=== PATIENT | female | born 1945 | race Two or more races ===

== ENCOUNTER 2017-03-12 10:20 | Inpatient (IN) | payer MEDICARE ==
[~2017-03-12] VITALS: Ht 167.6 cm; Wt 77.6 kg
[2017-03-12] MEDS ORDERED: METO100T7 PO (11:10)
[2017-03-12] MEDS ORDERED: CLOB15OI3 TP (11:10)
[2017-03-12] MEDS ORDERED: PREG25CA PO (11:10)
[2017-03-12] MEDS ORDERED: METR500T PO (11:10)
[2017-03-12] MEDS ORDERED: FLUT16SP NS (11:10)
[2017-03-12] MEDS ORDERED: ESTR42.5 VG (11:10)
[2017-03-12] MEDS ORDERED: BUSP5TAB3 PO (11:10)
[2017-03-12] MEDS ORDERED: RIVA10TA PO (11:10)
[2017-03-12] MEDS ORDERED: PROP15DR EACHEYE (11:10)
[2017-03-12] MEDS ORDERED: ACET-2605 PO (11:10)
[2017-03-12] MEDS ORDERED: DIAZ2TAB PO (11:12)
[2017-03-12] MEDS ORDERED: FLEC100T2 PO (11:12)
[2017-03-12 11:30] VITALS: BP 112/71
[2017-03-12] MEDS ORDERED: ACETAMINOPHEN 325 MG TABLET PO PRN (11:30)
[2017-03-12] MEDS ORDERED: MAGNESIUM HYDROXIDE 30 ML UDC PO PRN (11:30)
[2017-03-12] MEDS ORDERED: LORAZEPAM 0.5 MG TABLET PO PRN (11:30)
[2017-03-12] MEDS ORDERED: TEMAZEPAM 7.5 MG CAPSULE PO PRN (11:30)
[2017-03-12] MEDS ORDERED: MAG HYDROX/AL HYDROX/SIMETH 30 ML UDC PO PRN (11:30)
[2017-03-12] MEDS ORDERED: busPIRone 5 MG TABLET PO PRN (14:30)
[2017-03-12] MEDS: QUETIAPINE FUMARATE 25 MG TABLET PO SCH ×2 (14:30→17:00)
[2017-03-12 16:00] VITALS: BP 108/48
[2017-03-12] MEDS ORDERED: FLUTICASONE PROPIONATE 16 GM BOTTLE NS PRN (16:00)
[2017-03-12] MEDS ORDERED: ESTROGENS,CONJUGATED TUBE VG SCH (16:00)
[2017-03-12] MEDS ORDERED: ACETAMINOPHEN ES 500 MG TABLET PO PRN (16:00)
[2017-03-12] MEDS ORDERED: NEOMY SULF/BACITRAC ZN/POLY 15 GM TUBE TP SCH (16:00)
[2017-03-12] MEDS ORDERED: POLYVINYL ALCOHOL 15 ML BOTTLE EACHEYE PRN (16:00)
[2017-03-12] MEDS ORDERED: DIAZEPAM 2 MG TABLET PO PRN (16:00)
[2017-03-12] MEDS ORDERED: METOPROLOL SUCCINATE 50 MG TAB.SR.24H PO SCH (16:00)
[2017-03-12] MEDS ORDERED: RIVAROXABAN 10 MG TABLET PO SCH (17:00)
[2017-03-12] MEDS ORDERED: METRONIDAZOLE 500 MG TABLET PO SCH (17:00)
[2017-03-12] MEDS ORDERED: FLECAINIDE ACETATE (100 MG) 100 MG TABLET PO SCH (17:00)
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
--- NOTE | 2017-03-12 17:28 | NUR ---
DR. SAVAGE CAME IN THE UNIT AND EXAMINED THE PT. AND ORDERED TO TRANSFER PT. TO [facility] AND TY WASSERMAN NP MADE AWARE AND ORDERED TO TRANSFER TO [facility]. DR. ALONSO COVERING FOR DR. GARCIA MADE AWARE AND ORDERED TO D/C PT. TO [facility] AND TO CONTINUE ON HOLD AND D/C SEROQUEL AND D/C BUSPAR AND TO CONTINUE ATIVAN PO AND RESTORIL.
--- NOTE | 2017-03-12 18:13 | NUR ---
GPS RN: PER DR. ZHANG'S ORDER PATIENT DISCHARGED TO TELEMETRY WITH DX; A-FIB WITH RVR. PATIENT'S HOLD CONTINED PER DR. ALONSO'S ORDER. PATIENT'S ORIGINAL HOLD DOCUMENT AND BELONGINGS CHECKLIST WITH THE RECEIPT SENT WITH THE PATIENT(VALUABLES ARE IN THE SAFE), EXIT CARE EDUCATIONAL MATERIAL AND THE COPY OF THE H&PS INCLUDED WITH THE PAPERWORK. REPORT GIVEN TO LEONORA PETE IN THE [facility] UNIT. PATIENT LEFT THE UNIT ON A WHEELCHAIR ACCOMPANIED BY STAFF.
[2017-03-12 18:28] LABS: BASOPHILS % (AUTO) 0.3 % (0.0-2.0); EOSINOPHILS % (AUTO) 0.3 % (0.0-6.0); HEMATOCRIT 43 % (33-45); HEMOGLOBIN 14.1 g/dL (11.5-14.8); LYMPHOCYTES # (AUTO) 1.1 /CMM (0.8-4.8); MEAN CORPUSCULAR HEMOGLOBIN 32 PG (26.0-33.0); MEAN CORPUSCULAR HGB CONC 33 g/dl (31.0-36.0); MEAN CORPUSCULAR VOLUME 96 fL (82-100); MONOCYTES % (AUTO) 11.2 % (2.0-12.0); NEUTROPHILS # (AUTO) 7.1 /CMM (1.8-8.9); NEUTROPHILS % (AUTO) 76.2 % (43.0-81.0); PLATELET COUNT (AUTO) 350 /CMM (150-450); RDW COEFFICIENT OF VARIATION 12.7 (11.5-15.0); RED BLOOD CELL COUNT(AUTO) 4.43 MIL/uL (4.0-5.2); WHITE BLOOD COUNT (AUTO) 9.3 K/uL (4.3-11.0)
[2017-03-12 18:46] LABS: ALANINE AMINOTRANSFERASE 48 U/L (12-78); ALBUMIN 2.7 g/dL (3.4-5.0); ALKALINE PHOSPHATASE 71 U/L (46-116); ASPARTATE AMINOTRANSFERASE 29 U/L (15-37); BILIRUBIN,TOTAL 0.6 mg/dL (0.2-1.0); CALCIUM, SERUM 8.3 mg/dL (8.5-10.1); CARBON DIOXIDE 27 mmol/L (21-32); CHLORIDE 105 mmol/L (98-107); CREATININE 0.9 mg/dL (0.6-1.3); GLUCOSE 107 mg/dL (74-106); POTASSIUM 3.4 mmol/L (3.5-5.1); SODIUM SERUM 140 mmol/L (136-145); TOTAL PROTEIN, SERUM 5.9 g/dL (6.4-8.2); UREA NITROGEN, BLOOD 21 mg/dL (7-18)
[2017-03-13] MEDS ORDERED: CLOBETASOL 0.05% OINT 30 GM TUBE TP SCH (09:00)
[2017-03-13] MEDS ORDERED: PREGABALIN 25 MG CAPSULE PO SCH (09:00)
== END 2017-03-12 18:06 | disposition short-term general hospital (02) | DRG 885 ==
LOC: GPS 10:44
PROVIDERS: ADMIT Psychiatry & Neurology Psychiatry; ATTEND Psychiatry & Neurology Psychiatry
DX: F29 Unspecified psychosis not due to a substance or known physiological condition (principal); D68.59 Other primary thrombophilia; F41.1 Generalized anxiety disorder; F43.10 Post-traumatic stress disorder, unspecified; G25.81 Restless legs syndrome; H53.60 Unspecified night blindness; I10 Essential (primary) hypertension; Z59.0 Homelessness; Z79.899 Other long term (current) drug therapy; Z73.6 Limitation of activities due to disability; S51.801A Unspecified open wound of right forearm, initial encounter; V89.2XXA Person injured in unspecified motor-vehicle accident, traffic, initial encounter; Y92.410 Unspecified street and highway as the place of occurrence of the external cause; S81.801A Unspecified open wound, right lower leg, initial encounter; I48.0 Paroxysmal atrial fibrillation; Z87.442 Personal history of urinary calculi
CPT/HCPCS: 36415; 80053-TC; 83735-TC; 85025-TC

== ENCOUNTER 2017-03-12 18:15 | Inpatient (IN) | payer MEDICARE ==
[~2017-03-12] VITALS: Ht 167.6 cm; Wt 78.0 kg
[~2017-03-12 18:15] MED LIST: ACET-2605 PO; BUSP5TAB3 PO; CLOB15OI3 TP; DIAZ2TAB PO; ESTR42.5 VG; FLEC100T2 PO; FLUT16SP NS; METO100T7 PO; METR500T PO; PREG25CA PO; PROP15DR EACHEYE; RIVA10TA PO
[2017-03-12 18:20] VITALS: BP 101/62
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
[2017-03-12] MEDS ORDERED: MAG HYDROX/AL HYDROX/SIMETH 30 ML UDC PO PRN (18:30)
[2017-03-12] MEDS ORDERED: MORPHINE SULFATE INJ 2 MG/ML DISP.SYRIN IV PRN (18:30)
[2017-03-12] MEDS ORDERED: MAGNESIUM HYDROXIDE 30 ML UDC PO PRN (18:30)
[2017-03-12] MEDS ORDERED: ZOLPIDEM TARTRATE 5 MG TABLET PO PRN (18:30)
[2017-03-12] MEDS ORDERED: HYDROCODONE/APAP 5/325MG 1 EACH TABLET PO PRN (18:30)
[2017-03-12] MEDS ORDERED: Z GUARD REMEDY 2 OZ OINT TP PRN (18:30)
[2017-03-12] MEDS ORDERED: ONDANSETRON HCL/PF 4 MG/2 ML VIAL IVP PRN (18:30)
[2017-03-12] MEDS ORDERED: POLYVINYL ALCOHOL 15 ML BOTTLE EACHEYE PRN (19:00)
[2017-03-12] MEDS ORDERED: ESTROGENS,CONJUGATED TUBE VG SCH (19:00)
[2017-03-12] MEDS ORDERED: FLUTICASONE PROPIONATE 16 GM BOTTLE NS PRN (19:00)
[2017-03-12] MEDS: IV NS 0.9% 1,000 ML IV PRN (19:57)
[2017-03-12 20:00] VITALS: BP_SYST 101; BP_SYST 115; BP_DIAS 62; BP_DIAS 72
--- NOTE | 2017-03-12 20:00 | NUR ---
[facility] RN NOTES RECEIVED PTS ON BED AWAKE AND RESPONSIVE ON [facility] AFIB ON THE [id number], NO SOB NO DISTRESS NOTED , C/O OF LEG PAIN , V/S BP 120/62 AFEBRILE , LOPRESSOR AND ACETAMINOPHEN GIVEN ORDERED ALL NEEDS ATTENDED TOO ALL DUE MEDS GIVEN ORDERED CALL LIGHT WITHIN REACH IV HEPLOCK INSERTED ON L HAND WITH G#22 INTACT AND PATENT STARTED WITH IV FLUID OF NS AT 75CC/HR , KEPT PTS CLEAN DRY AND COMFORTABLE , PTS ON 5150 HOLD ON 1:1 SITTER AT BEDSIDE , NO BEHAVIOR NOTED AT THIS TIME , WILL CONTINUE TO MONITOR PTS.
[2017-03-12] MEDS: ACETAMINOPHEN 325 MG TABLET PO PRN (20:08)
[2017-03-12] MEDS: METOPROLOL TARTRATE 50 MG TABLET PO SCH (20:11)
[2017-03-12] MEDS: DIAZEPAM 2 MG TABLET PO PRN (20:18)
--- NOTE | 2017-03-12 22:00 | NUR ---
[facility] RN NOTES PAGED AND SPOKE TO DR HOLDEN OWENS PTS HR IS [id number] THE MONITOR , AND THAT LOPRESSOR 50 MG IS ALREADY GIVEN AT 9PM , WITH ORDER TO GIVE FLECAINIDE ACETATE. ORDER NOTED AND CARRIED OUT, WILL CONTINUE TO MONITOR PTS.
[2017-03-12] MEDS ORDERED: FLECAINIDE ACETATE (100 MG) 100 MG TABLET PO SCH (22:30)
[2017-03-12] MEDS: METRONIDAZOLE 500 MG TABLET PO SCH (23:13)
--- NOTE | 2017-03-12 23:20 | NUR ---
[facility] LEA NOTES RECEIVED AND ORDER FROM DR HATCH CORDARONE 150 MG BOLUS GIVEN ORDERED V/S 101/58 SK=[id number] .WILL CONTINUE TO MONITOR PTS. Addendum: 03/13/17 at 0441 by AISHA MOSQUERA RN CORDARONE WAS ORDER BY DR ZHANG NOT DR HATCH
[2017-03-12] MEDS ORDERED: AMIODARONE 900 MG in IV D5W 482 ML IV PRN (23:30)
[2017-03-12] MEDS ORDERED: AMIODARONE 150 MG in IV D5W 100 ML IV ONE (23:30)
[2017-03-13] VITALS: BP 100/65
[2017-03-13] MEDS ORDERED: AMIODARONE 150 MG/3 ML VIAL IV ONE ×2 (00:56→00:57)
--- NOTE | 2017-03-13 01:30 | NUR ---
[facility] LEA NOTES CORDARONE DRIP STARTED AT 1MG/33.3ML/HR, ORDERED BY DR HATCH FOR AFIV WITH RVR =WITH HR 130-150, WILL CONTINUE TO MONITOR PTS, V/S STABLE BP 101/58 HR =130. Addendum: 03/13/17 at 0440 by AISHA MOSQUERA RN CORDARONE WAS ORDER BY DR MONTRELL DELGADO NOT DR HATCH
[2017-03-13] MEDS: ACETAMINOPHEN 325 MG TABLET PO PRN ×3 (03:13→20:55)
[2017-03-13 04:00] VITALS: BP 111/74
[2017-03-13 06:25] LABS: BASOPHILS % (AUTO) 0.2 % (0.0-2.0); EOSINOPHILS % (AUTO) 0.5 % (0.0-6.0); HEMATOCRIT 41 % (33-45); HEMOGLOBIN 13.9 g/dL (11.5-14.8); LYMPHOCYTES # (AUTO) 1.6 /CMM (0.8-4.8); LYMPHOCYTES % (AUTO) 18.1 % (20.0-44.0); MEAN CORPUSCULAR HEMOGLOBIN 33 PG (26.0-33.0); MEAN CORPUSCULAR HGB CONC 34 g/dl (31.0-36.0); MEAN CORPUSCULAR VOLUME 96 fL (82-100); MONOCYTES # (AUTO) 1.2 /CMM (0.1-1.30); MONOCYTES % (AUTO) 12.9 % (2.0-12.0); NEUTROPHILS # (AUTO) 6.2 /CMM (1.8-8.9); NEUTROPHILS % (AUTO) 68.3 % (43.0-81.0); PLATELET COUNT (AUTO) 325 /CMM (150-450); RDW COEFFICIENT OF VARIATION 13.1 (11.5-15.0); RED BLOOD CELL COUNT(AUTO) 4.26 MIL/uL (4.0-5.2); WHITE BLOOD COUNT (AUTO) 9.1 K/uL (4.3-11.0)
--- NOTE | 2017-03-13 06:26 | NUR ---
[facility] RN NOTES PTS REMAINS ON BED AWAKE AND RESPONSIVE , ON AFIB AND A FLUTTER ON THE MONITOR -110, REMAINS ON AMIODARONE DRIP AT 1MG/33.3ML/HR .IVF OF NS AT 75CC/HR .WILL ENDORSE TO RN DAY SHIFT TO CHANGE AMIO AT 0.5 MG /MIN/16.6CC/HR.
[2017-03-13 06:47] LABS: CALCIUM, SERUM 7.4 mg/dL (8.5-10.1); CARBON DIOXIDE 24 mmol/L (21-32); CHLORIDE 110 mmol/L (98-107); CREATININE 0.8 mg/dL (0.6-1.3); GLUCOSE 107 mg/dL (74-106); MAGNESIUM 1.9 mg/dL (1.8-2.4); PHOSPHORUS 2.3 mg/dL (2.5-4.9); POTASSIUM 3.9 mmol/L (3.5-5.1); SODIUM SERUM 142 mmol/L (136-145); UREA NITROGEN, BLOOD 15 mg/dL (7-18)
[2017-03-13 06:54] LABS: CHOLESTEROL 132 mg/dL (<200); HDL CHOLESTEROL 40 mg/dL (40-60); LDL 80 mg/dL (0-99); THYROID STIMULATING HORMONE 0.987 uIU/mL (0.358-3.74); TRIGLYCERIDES 74 mg/dL (30-150)
--- NOTE | 2017-03-13 07:05 | NUR ---
[facility] INITIAL RN NOTE: RECEIVED PT ALERT AND ORIENTED IN BED. NO S/S TO PAIN OR DISCOMFORT. ABLE TO MAKE NEEDS KNOWN. RESPIRATIONS EVEN AND UNLABORED ON RA. NO S/S OF SOB OR RESPIRATORY DISTRESS. ON TELE MONITOR WITH AFIB. SKIN WARM TO TOUCH. IV SITES FLUSHED AND PATENT. BED LOW, LOCKED WITH CALL LIGHT WITHIN REACH. ALL NEEDS MET AND ANTICIPATED. 1:1 SITTER AT BEDSIDE. WILL CONT TO MONITOR.
--- NOTE | 2017-03-13 07:20 | NUR ---
[facility] RN NOTE: PATIENT CONVERTED TO SR AT 0715 WITH HEART RATE DROPPED TO 50S. DR. ZHANG CONFIRMED TO CONT AMIODARONE 0.5MG/MIN IV.
[2017-03-13 08:00] VITALS: BP 111/65
[2017-03-13] MEDS: PANTOPRAZOLE 40 MG TABLET.DR PO SCH (08:09)
[2017-03-13] MEDS: PREGABALIN 25 MG CAPSULE PO SCH (08:09)
[2017-03-13] MEDS: METRONIDAZOLE 500 MG TABLET PO SCH ×3 (08:09→17:12)
[2017-03-13] MEDS: CLOBETASOL 0.05% OINT 30 GM TUBE TP SCH (08:12)
[2017-03-13] MEDS: METOPROLOL TARTRATE 50 MG TABLET PO SCH ×2 (08:12→20:55)
[2017-03-13] MEDS ORDERED: FLECAINIDE ACETATE (100 MG) 100 MG TABLET PO SCH (09:00)
[2017-03-13] MEDS: IV NS 0.9% 1,000 ML IV PRN (09:19)
--- NOTE | 2017-03-13 10:45 | NUR ---
[facility] RN NOTE: PATIENT REPORTED FEELING ANXIOUS. VALIUM 2MG PO TAB PRN FOR ANXIETY GIVEN ORDERED. WILL CONT TO MONITOR.
[2017-03-13] MEDS: DIAZEPAM 2 MG TABLET PO PRN (10:52)
[2017-03-13 12:00] VITALS: BP 117/62
[2017-03-13] MEDS ORDERED: K PHOS NEUTRAL 250 MG TABLET PO ONE (12:00)
--- NOTE | 2017-03-13 13:03 | NUR ---
[facility] RN NOTE: PATIENT RETURNED FROM MRI. WILL CONT IV FLUIDS AND 1:1 STATUS.
[2017-03-13 16:00] VITALS: BP 141/70
--- NOTE | 2017-03-13 16:00 | NUR ---
[facility] RN NOTE: EEG PROCEDURE TO BE DONE AT BEDSIDE. IV FLUIDS HELD. 1:1 SITTER AT BEDSIDE. WILL CONTINUE TO MONITOR.
[2017-03-13] MEDS: RIVAROXABAN 10 MG TABLET PO SCH (17:13)
--- NOTE | 2017-03-13 19:05 | NUR ---
[facility]/CONFERENCE ASSISTANT WENT INTO ROOM GET REPORT FROM DAY NURSE, FOUND RIGHT ARM INFILTRATED AND RED WITH WARM TO TOUCH. PT SAID SHE HAD COMPLAIN ABOUT THE PAIN TO HER ARMS HOWEVER NOBODY LISTENED TO HER. CALL GOT ORDER FOR MIDLINE DUE TO THE FACT PT IS ON AMIODARONE DRIP AND IVF. MIDLINE TO BE PLACED TONIGHT TO CONTINUE DRIP.
--- NOTE | 2017-03-13 19:30 | NUR ---
[facility] CLOSING RN NOTE: PATIENT REMAINED ALERT AND ORIENTED DURING SHIFT. ORDERS CARRIED OUT. ALL NEEDS MET AND ANTICIPATED. BED LOW, LOCKED WITH CALL LIGHT WITHIN REACH. REPORT GIVEN TO CONFORMAL PAD FORMER NURSE FOR MYLES.
[2017-03-13 20:00] VITALS: BP 167/59
--- NOTE | 2017-03-13 20:20 | NUR ---
[facility]/FUNERAL PREARRANGEMENT COUNSELOR MIDLINE PLACED TO LEFT ARM, WITH GOOD BLOOD RETURN. ALL IV'S WERE RECONNECTED.
[2017-03-13] MEDS ORDERED: DIAZEPAM 2 MG TABLET PO ONE (21:00)
--- NOTE | 2017-03-13 21:10 | NUR ---
W[facility]/SENIOR BUYER GAVE PM MEDICATION OF LOPRESSOR FOR BP ELEVATED AT 167/59, ALSO PM MEDIATION TYLENOL 650MG GIVEN FOR PAIN TO ARM AND ABDOMINAL AREAS WITH BRUISING. THEN PT UP TO BATHROOM TO VOID AND HAVE BM. ASST BACK TO BED.
[2017-03-14 00:02] VITALS: BP 140/66
--- NOTE | 2017-03-14 00:15 | NUR ---
[facility]/BOARDING MACHINE OPERATOR PT UP TO THE BATHROOM WITH ASST WITH A WALKER. PT HAS A STEADY GAIT. PT CURRENTLY DENIES PAIN. PT APPEARS TO BE COMFORTABLE, NO ACUTE DISTRESS SEEN.
[2017-03-14] MEDS: IV NS 0.9% 1,000 ML IV PRN (01:20)
--- NOTE | 2017-03-14 02:14 | NUR ---
[facility]/PILOT BOAT DECKHAND PT UP TO THE BATHROOM WITH ASSISTANCE, STEADY GAIT. BEDDING CHANGED, PT APPEARS COMFORTABLE, NO ACUTE RESPIRATORY DISTRESS. CURRENTLY DENIES PAIN.
[2017-03-14] MEDS: ACETAMINOPHEN 325 MG TABLET PO PRN ×3 (03:32→21:49)
--- NOTE | 2017-03-14 03:40 | NUR ---
[facility]/SYSTEM SUPPORT TECHNICIAN PT COMPLAIN PAIN TO LEGS, GAVE TYLENOL 650MG PO.NO ACUTE DISTRESS SEEN.WILL MONITOR PT AND PAIN
[2017-03-14 04:00] VITALS: BP 136/67
[2017-03-14 06:25] LABS: BASOPHILS % (AUTO) 0.3 % (0.0-2.0); EOSINOPHILS # (AUTO) 0.1 /CMM (0.0-0.7); HEMATOCRIT 39 % (33-45); LYMPHOCYTES # (AUTO) 1.3 /CMM (0.8-4.8); LYMPHOCYTES % (AUTO) 13.8 % (20.0-44.0); MEAN CORPUSCULAR HEMOGLOBIN 33 PG (26.0-33.0); MEAN CORPUSCULAR HGB CONC 34 g/dl (31.0-36.0); MEAN CORPUSCULAR VOLUME 96 fL (82-100); MONOCYTES # (AUTO) 0.9 /CMM (0.1-1.30); MONOCYTES % (AUTO) 10.3 % (2.0-12.0); NEUTROPHILS # (AUTO) 6.9 /CMM (1.8-8.9); NEUTROPHILS % (AUTO) 74.6 % (43.0-81.0); PLATELET COUNT (AUTO) 323 /CMM (150-450); RED BLOOD CELL COUNT(AUTO) 4.01 MIL/uL (4.0-5.2); WHITE BLOOD COUNT (AUTO) 9.2 K/uL (4.3-11.0)
[2017-03-14 06:45] LABS: CALCIUM, SERUM 7.7 mg/dL (8.5-10.1); CARBON DIOXIDE 24 mmol/L (21-32); CHLORIDE 111 mmol/L (98-107); CREATININE 0.9 mg/dL (0.6-1.3); GLUCOSE 103 mg/dL (74-106); POTASSIUM 3.9 mmol/L (3.5-5.1); SODIUM SERUM 144 mmol/L (136-145); UREA NITROGEN, BLOOD 10 mg/dL (7-18)
--- NOTE | 2017-03-14 07:18 | NUR ---
[facility] RN INITIAL NOTES: REC'D PT AWAKE ON BED, NOT IN ANY DISTRESS, A/O X2-3. ON ROOM AIR, NO SOB. ON TELEMONITOR, SR/SB. PT HAS BEVERLEY MIDLINE, FLUSHED, PATENT & INTACT W/ NO S/SX OF INFECTION/ INFILTRATION. 1:1 SITTER AT BEDSIDE. PROVIDED COMFORT & SAFETY MEASURES. BED KEPT LOW & IN LOCKED POS. CALL LIGHT PLACED W/IN REACH. WILL CONTINUE TO MONITOR.
[2017-03-14] MEDS: PANTOPRAZOLE 40 MG TABLET.DR PO SCH (07:36)
[2017-03-14 08:00] VITALS: BP 116/65
[2017-03-14] MEDS: METOPROLOL TARTRATE 50 MG TABLET PO SCH ×2 (08:33→21:49)
[2017-03-14] MEDS: METRONIDAZOLE 500 MG TABLET PO SCH ×3 (08:33→16:06)
[2017-03-14] MEDS: PREGABALIN 25 MG CAPSULE PO SCH (08:34)
[2017-03-14] MEDS: FLECAINIDE ACETATE (100 MG) 100 MG TABLET PO SCH ×2 (08:34→21:48)
[2017-03-14] MEDS: OLANZAPINE 2.5 MG TABLET PO SCH (08:34)
[2017-03-14] MEDS: CLOBETASOL 0.05% OINT 30 GM TUBE TP SCH (08:35)
--- NOTE | 2017-03-14 09:00 | NUR ---
RN NOTES: PT SEEN & EXAMINED BY YINA CRAWFORD W/ NEW ORDERS & CARRIED OUT. INFORMED ABOUT AMIODARONE DRIP ALREADY OFF. HE STATED NO NEED TO START PO AMIODARONE PT ALREADY ON Flecainide. OKAY FOR PT TO HAVE SHOWER.
[2017-03-14 12:00] VITALS: BP 113/65
[2017-03-14 16:00] VITALS: BP 125/68
[2017-03-14] MEDS: DIAZEPAM 2 MG TABLET PO PRN (16:06)
[2017-03-14] MEDS: RIVAROXABAN 10 MG TABLET PO SCH (16:09)
--- NOTE | 2017-03-14 18:00 | NUR ---
RN NOTES: TY, CHEMICAL PROCESS ANALYST MADE AWARE OF XRAY RESULT OF R FOOT. NO ORDERS.
--- NOTE | 2017-03-14 19:17 | NUR ---
[facility] RN CLOSING NOTES: NO ACUTE CHANGES NOTED W/IN SHIFT. NO SOB WHILE ON ROOM AIR. BEVERLEY MIDLINE, KEPT PATENT & INTACT W/ NO S/SX OF INFECTION/ INFILTRATION. 1:1 SITTER AT BEDSIDE. KEPT WELL RESTED. BED KEPT LOW & IN LOCKED POS. CALL LIGHT PLACED W/IN REACH. NEEDS ATTENDED. ENDORSED TO PM RN FOR MYLES. 5150 HOLD WILL 03/15/17 AT 0432h.
[2017-03-14 20:00] VITALS: BP 113/60
--- NOTE | 2017-03-14 22:58 | NUR ---
MS/RN NOTES RECEIVED REPORT FROM RN AND RECEIVED PT. LYING IN BED RESTING EASILY AROUSABLE TO NAME. AWAKE, ALERT AND ORIENTED X3. BREATHING EVEN AND UNLABORED ON ROOM AIR. NO SOB, RESPIRATORY DISTRESS OR S/S OF PAIN NOTED AT THIS TIME. PT. WITH LEFT UPPER ARM MIDLINE PRESENT, PATENT AND INTACT. PT. WITH SITTER PRESENT AT BEDSIDE. BED IN LOWEST POSITION, SIDE RAILS UP X2, CALL LIGHT WITHIN REACH, WILL CONTINUE TO MONITOR.
--- NOTE | 2017-03-14 23:13 | NUR ---
RN NOTES 1900 RECEIVED IN BED AWAKE, ALERT AND ORIENTED. NO SIGNS OF DISTRESS. DENIES PAIN AT THIS TIME. SITTER AT BEDSIDE. ON 5150 HOLD UNTIL 0430AM. MULTIPLE BRUISES /ECCHYMOSIS NOTED. BOTH ARMS WITH SKIN TEARS AND SCABS. NO PRESSURE ULCER NOTED. BEVERLEY MIDLINE PATENT AND INTACT 2099 DR. ALONSO CAME IN. EXTENDED 72 HOUR HOLD TO 14DAY HOLD. CONTINUE WITH SITTER AT BEDSIDE. PM MEDS TOLERATED WELL. AMBULATED TO HALLWAY WITH WALKER WITH NO RESPIRATORY DISTRESS NOTED. 8332 REPORT GIVEN TO RICHARD FOR CONTINUITY OF CARE
[2017-03-15 04:00] VITALS: BP 125/72
--- NOTE | 2017-03-15 06:22 | NUR ---
MS/RN NOTES PT. IS SITTING UP IN BED, AWAKE, ALERT AND ORIENTED X3. BREATHING EVEN AND UNLABORED ON ROOM AIR. NO SOB, RESPIRATORY DISTRESS OR S/S OF PAIN NOTED AT THIS TIME. PT. WITH LEFT UPPER ARM MIDLINE PRESENT, PATENT AND INTACT. PT. WITH SITTER PRESENT AT BEDSIDE. ALL PT. NEEDS MET. PER PREVIOUS BRAZER CRAWLER TORCH NURSE DR. ALONSO SAW THE THE PATIENT AND EXTENDED THE PT. 72 HOUR HOLD TO A 14 DAY HOLD. BED IN LOWEST POSITION, SIDE RAILS UP X2, CALL LIGHT WITHIN REACH, WILL ENDORSE TO DAYSHIFT NURSE FOR CONTINUITY OF CARE.
--- NOTE | 2017-03-15 08:00 | NUR ---
AM RN NOTES RECEIVED PT AWAKE, IN STABLE CONDITION, SITTER AT BEDSIDE, NO BEHAVIOR PROBLEMS NOTED, WILL MONITOR.
[2017-03-15] MEDS: OLANZAPINE 2.5 MG TABLET PO SCH (09:13)
[2017-03-15] MEDS: PREGABALIN 25 MG CAPSULE PO SCH (09:13)
[2017-03-15] MEDS: PANTOPRAZOLE 40 MG TABLET.DR PO SCH (09:13)
[2017-03-15] MEDS: METRONIDAZOLE 500 MG TABLET PO SCH ×2 (09:14→12:46)
[2017-03-15] MEDS: CLOBETASOL 0.05% OINT 30 GM TUBE TP SCH (09:15)
[2017-03-15] MEDS: FLECAINIDE ACETATE (100 MG) 100 MG TABLET PO SCH (09:20)
[2017-03-15] MEDS: METOPROLOL TARTRATE 50 MG TABLET PO SCH (09:20)
[2017-03-15 10:00] VITALS: BP 121/63
[2017-03-15] MEDS ORDERED: busPIRone 5 MG TABLET PO SCH (10:30)
--- NOTE | 2017-03-15 13:47 | NUR ---
PT ALERT AND ORIENTED, DISCHARGED TO GPS UNIT IN STABLE CONDITION, NO PIN OR DISCOMFORT NOTED, NO SOB OR DISTRESS, NO CHEST PAIN, CONSUMED HER DINNER, INSTRUCTIONS GIVEN, EDUCATION DONE, REPORT GIVEN TO S NURSE COPE, ALL PICTURES TAKEN AND PLACED IN CHART, PT TRANSFERRED TO GPS UNIT SAFELY.
[2017-03-15] MEDS ORDERED: PANT40TA4 PO (14:38)
[2017-03-15] MEDS ORDERED: MAG30ORA PO (14:38)
[2017-03-15] MEDS ORDERED: METR-105 PO (14:38)
[2017-03-15] MEDS ORDERED: ACET-868 PO (14:38)
[2017-03-15] MEDS ORDERED: MAGN400O6 PO (14:38)
[2017-03-15] MEDS ORDERED: ZOLP5TAB2 PO (14:38)
[2017-03-15] MEDS ORDERED: DIAZ2TAB PO (14:38)
[2017-03-15] MEDS ORDERED: POLY15DR40 EACHEYE (14:38)
[2017-03-16] MEDS ORDERED: OLANZAPINE 2.5 MG TABLET PO SCH (09:00)
== END 2017-03-15 13:30 | DRG 309 ==
LOC: TELE1 18:15 → TELE-TD 18:24 → MEDSG1 03-14 15:26
PROVIDERS: ADMIT Nurse Practitioner Acute Care; ATTEND Nurse Practitioner Acute Care
PROC: 02HV33Z Insertion of Infusion Device into Superior Vena Cava, Percutaneous Approach (ICD-10-PCS; principal; 2017-03-13)
DX: I48.91 Unspecified atrial fibrillation (principal); D68.59 Other primary thrombophilia; F29 Unspecified psychosis not due to a substance or known physiological condition; G25.81 Restless legs syndrome; Z59.0 Homelessness; Z73.6 Limitation of activities due to disability; I10 Essential (primary) hypertension; Z79.01 Long term (current) use of anticoagulants; F43.10 Post-traumatic stress disorder, unspecified; S20.211D Contusion of right front wall of thorax, subsequent encounter; S50.11XD Contusion of right forearm, subsequent encounter; V89.2XXD Person injured in unspecified motor-vehicle accident, traffic, subsequent encounter; J31.0 Chronic rhinitis; F41.1 Generalized anxiety disorder; S81.801D Unspecified open wound, right lower leg, subsequent encounter
CPT/HCPCS: 36415; 70551-TC; 71010-TC; 73630-TC; 80048-TC; 80061-TC; 83735-TC; 84100-TC; 84443-TC; 84484-TC; 85025-TC; 87081-TC; 93307-TC; 95819-TC; J0282; J7030; J7060; Z7610

== ENCOUNTER 2017-03-15 13:53 | Inpatient (IN) | payer MEDICARE ==
[~2017-03-15] VITALS: Ht 167.6 cm; Wt 81.6 kg
[2017-03-15 13:30] VITALS: BP 123/60
[~2017-03-15 13:53] MED LIST changes: -BUSP5TAB3 PO; -DIAZ2TAB PO
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
[2017-03-15] MEDS ORDERED: MAG HYDROX/AL HYDROX/SIMETH 30 ML UDC PO PRN ×2 (14:30→16:30)
[2017-03-15] MEDS ORDERED: clonazePAM 0.5 MG TABLET PO PRN (14:30)
[2017-03-15] MEDS ORDERED: MAGNESIUM HYDROXIDE 30 ML UDC PO PRN (14:30)
[2017-03-15] MEDS ORDERED: ACETAMINOPHEN 325 MG TABLET PO PRN (14:30)
[2017-03-15] MEDS ORDERED: MAG30ORA PO (14:38)
[2017-03-15] MEDS ORDERED: ZOLP5TAB2 PO (14:38)
[2017-03-15] MEDS ORDERED: DIAZ2TAB PO (14:38)
[2017-03-15] MEDS ORDERED: MAGN400O6 PO (14:38)
[2017-03-15] MEDS ORDERED: PANT40TA4 PO (14:38)
[2017-03-15] MEDS ORDERED: ACET-868 PO (14:38)
[2017-03-15] MEDS ORDERED: POLY15DR40 EACHEYE (14:38)
[2017-03-15] MEDS ORDERED: METR-105 PO (14:38)
[2017-03-15] MEDS ORDERED: Z GUARD REMEDY 4 OZ OINT TP PRN (16:00)
[2017-03-15] MEDS: RIVAROXABAN 10 MG TABLET PO SCH (17:40)
[2017-03-15] MEDS: METRONIDAZOLE 500 MG TABLET PO SCH (17:41)
[2017-03-15 20:12] VITALS: BP 113/72
[2017-03-15] MEDS: TEMAZEPAM 7.5 MG CAPSULE PO PRN (21:42)
[2017-03-15] MEDS: FLECAINIDE ACETATE (100 MG) 100 MG TABLET PO SCH (21:43)
[2017-03-16 07:51] LABS: ALANINE AMINOTRANSFERASE 29 U/L (12-78); ALBUMIN 2.8 g/dL (3.4-5.0); ALKALINE PHOSPHATASE 66 U/L (46-116); ASPARTATE AMINOTRANSFERASE 20 U/L (15-37); BILIRUBIN,TOTAL 0.5 mg/dL (0.2-1.0); CALCIUM, SERUM 8.4 mg/dL (8.5-10.1); CARBON DIOXIDE 28 mmol/L (21-32); CHLORIDE 107 mmol/L (98-107); CREATININE 0.9 mg/dL (0.6-1.3); GLUCOSE 94 mg/dL (74-106); POTASSIUM 3.6 mmol/L (3.5-5.1); SODIUM SERUM 142 mmol/L (136-145); TOTAL PROTEIN, SERUM 6.5 g/dL (6.4-8.2); UREA NITROGEN, BLOOD 19 mg/dL (7-18)
[2017-03-16 07:53] LABS: CHOLESTEROL 148 mg/dL (<200); HDL CHOLESTEROL 46 mg/dL (40-60); LDL 82 mg/dL (0-99); TRIGLYCERIDES 83 mg/dL (30-150)
[2017-03-16 08:00] VITALS: BP 140/76
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
[2017-03-16] MEDS: CLOBETASOL 0.05% OINT 30 GM TUBE TP SCH (09:15)
[2017-03-16] MEDS: PANTOPRAZOLE 40 MG TABLET.DR PO SCH (09:16)
[2017-03-16] MEDS: METRONIDAZOLE 500 MG TABLET PO SCH ×3 (09:16→16:43)
[2017-03-16] MEDS: FLECAINIDE ACETATE (100 MG) 100 MG TABLET PO SCH ×2 (09:16→21:18)
[2017-03-16] MEDS: FLUTICASONE PROPIONATE 16 GM BOTTLE NS PRN (09:22)
[2017-03-16] MEDS: CARBOXYMETHYLCELLULOSE SODIUM 0.4 ML DROPERETTE EACHEYE PRN (09:22)
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
--- NOTE | 2017-03-16 16:00 | NUR ---
GPS/RN AFTERNOON ROUNDS NO ACUTE CHANGE OF CONDITION OR DISTRESS NOTED. MONITORING CONTINUED.
[2017-03-16] MEDS: RIVAROXABAN 10 MG TABLET PO SCH (16:43)
--- NOTE | 2017-03-16 17:30 | NUR ---
GPS/RN HOME MEDS - METOPROLOL NOTIFIED DR. MAYORGA OF PT'S REQUEST FOR HER HOME MEDS METROPOLOL 200MG DAILY, SAW IN MED RE-CON THAT MEDICATION WAS D/C'd, VERIFIED WITH MD IF HE REALLY WANTS TO D/C THE MEDICATION. AWAITING FOR MD's REPLY.
[2017-03-16] MEDS: busPIRone 5 MG TABLET PO SCH (17:43)
--- NOTE | 2017-03-16 18:00 | NUR ---
GPS/RN METOPROLOL - INITIATED RECEIVED TEXT REPLY FROM DR. MAYORGA TO START PT ON METOPROLOL 100MG BID. ORDER NOTED AND CARRIED OUT.
[2017-03-16] MEDS: METOPROLOL SUCCINATE 50 MG TAB.SR.24H PO SCH (18:20)
--- NOTE | 2017-03-16 19:18 | NUR ---
GPS/RN AM SHIFT END NOTES ALL NEEDS MET. NO ACUTE CHANGE OF CONDITION NOTED DURING THE SHIFT. PT ENDORSED TO PM NURSE TO CONTINUE CARE. SAFETY MAINTAINED.
[2017-03-16] MEDS: ACETAMINOPHEN 325 MG TABLET PO PRN (19:36)
--- NOTE | 2017-03-16 19:36 | NUR ---
GPS RN: SEEN PATIENT IN THE HALLWAY,AWAKE, NOT IN RESPIRATORY DISTRESS THIS TIME OF ASSESSMENT. PATIENT COMPLAINED OF GENERALIZED BODY PAIN. REQUESTED FOR TYLENOL 650 MG- GIVEN ORALLY ORDERED. WILL MONITOR PATIENT AND EFFECTIVENESS OF THE MEDICATION.
[2017-03-16 19:46] VITALS: BP 135/88
[2017-03-16] MEDS: OLANZAPINE 2.5 MG TABLET PO SCH (23:00)
--- NOTE | 2017-03-16 23:00 | NUR ---
GPS RN NOTES: PATIENT REFUSED HER NEW ORDER OF ZYPREXA 2.5 MG PO, PER PATIENT SHE IS NOT USED TAKING THESE MEDICATION AT HOME. WILL ENDORSE TO DAY SHIFT NURSE.
[2017-03-17] MEDS: ACETAMINOPHEN 325 MG TABLET PO PRN ×2 (03:00→18:55)
[2017-03-17 07:09] LABS: BASOPHILS % (AUTO) 0.2 % (0.0-2.0); EOSINOPHILS # (AUTO) 0.1 /CMM (0.0-0.7); EOSINOPHILS % (AUTO) 0.6 % (0.0-6.0); HEMATOCRIT 43 % (33-45); HEMOGLOBIN 14.4 g/dL (11.5-14.8); LYMPHOCYTES % (AUTO) 10.8 % (20.0-44.0); MEAN CORPUSCULAR HEMOGLOBIN 32 PG (26.0-33.0); MEAN CORPUSCULAR HGB CONC 34 g/dl (31.0-36.0); MEAN CORPUSCULAR VOLUME 96 fL (82-100); MONOCYTES # (AUTO) 0.9 /CMM (0.1-1.30); MONOCYTES % (AUTO) 9.3 % (2.0-12.0); NEUTROPHILS # (AUTO) 7.6 /CMM (1.8-8.9); NEUTROPHILS % (AUTO) 79.1 % (43.0-81.0); PLATELET COUNT (AUTO) 396 /CMM (150-450); RDW COEFFICIENT OF VARIATION 12.7 (11.5-15.0); RED BLOOD CELL COUNT(AUTO) 4.45 MIL/uL (4.0-5.2); WHITE BLOOD COUNT (AUTO) 9.6 K/uL (4.3-11.0)
[2017-03-17 07:39] LABS: CALCIUM, SERUM 8.2 mg/dL (8.5-10.1); CARBON DIOXIDE 26 mmol/L (21-32); CHLORIDE 107 mmol/L (98-107); CREATININE 0.8 mg/dL (0.6-1.3); GLUCOSE 115 mg/dL (74-106); MAGNESIUM 1.9 mg/dL (1.8-2.4); PHOSPHORUS 2.8 mg/dL (2.5-4.9); POTASSIUM 3.8 mmol/L (3.5-5.1); SODIUM SERUM 142 mmol/L (136-145); UREA NITROGEN, BLOOD 11 mg/dL (7-18)
[2017-03-17 08:00] VITALS: BP 108/64
[2017-03-17] MEDS: METRONIDAZOLE 500 MG TABLET PO SCH ×3 (08:17→16:48)
[2017-03-17] MEDS: PANTOPRAZOLE 40 MG TABLET.DR PO SCH (08:17)
[2017-03-17] MEDS: busPIRone 5 MG TABLET PO SCH ×2 (08:18→16:48)
[2017-03-17] MEDS: METOPROLOL SUCCINATE 50 MG TAB.SR.24H PO SCH ×2 (08:18→16:48)
[2017-03-17] MEDS: FLECAINIDE ACETATE (100 MG) 100 MG TABLET PO SCH ×2 (08:22→21:33)
[2017-03-17] MEDS: CLOBETASOL 0.05% OINT 30 GM TUBE TP SCH (08:23)
--- NOTE | 2017-03-17 09:00 | NUR ---
RN NOTES PATIENT REFUSED TO PARTICIPATE IN ACTIVITIES. WOULD NOT LIKE TO INTERACT WITH OTHERS AND WOULD PREFER TO ISOLATE SELF. LOOKS DEPRESSED AND HAS REMAINED IN BED MOST OF THE DAY.SIGNS OF SELF NEGLECT AND DIDN'T PERFORM ADLS
--- NOTE | 2017-03-17 15:19 | NUR ---
SW spoke with the patient again and pt. continues to insist that she wants to rent a car and continue her drive to [place]. She states she has friends there who she will stay with until she finds a place to live. Pt. states she knows what's best for her and being in the hospital makes her worse. She is worried about her cat and wants to take her cat from the intermediate and continue her quest.
[2017-03-17 16:00] VITALS: BP 116/63
[2017-03-17] MEDS: RIVAROXABAN 10 MG TABLET PO SCH (16:48)
[2017-03-17] MEDS: FLUTICASONE PROPIONATE 16 GM BOTTLE NS PRN (18:58)
[2017-03-17] MEDS: CARBOXYMETHYLCELLULOSE SODIUM 0.4 ML DROPERETTE EACHEYE PRN (18:59)
[2017-03-17 19:58] VITALS: BP 110/59
[2017-03-17] MEDS: OLANZAPINE 2.5 MG TABLET PO SCH (21:33)
[2017-03-17] MEDS: TEMAZEPAM 7.5 MG CAPSULE PO PRN (21:34)
[2017-03-18] MEDS: PANTOPRAZOLE 40 MG TABLET.DR PO SCH (07:30)
[2017-03-18 08:00] VITALS: BP 134/72
[2017-03-18] MEDS: METOPROLOL SUCCINATE 50 MG TAB.SR.24H PO SCH ×2 (08:22→17:11)
[2017-03-18] MEDS: busPIRone 5 MG TABLET PO SCH ×2 (08:23→17:17)
[2017-03-18] MEDS: METRONIDAZOLE 500 MG TABLET PO SCH ×3 (08:23→17:06)
[2017-03-18] MEDS: CLOBETASOL 0.05% OINT 30 GM TUBE TP SCH (08:25)
[2017-03-18] MEDS: FLECAINIDE ACETATE (100 MG) 100 MG TABLET PO SCH ×2 (08:25→21:37)
--- NOTE | 2017-03-18 14:43 | NUR ---
Pt. still wants to drive to [place] and stay there. Pt. refuses placement and wants to discharge.
[2017-03-18 16:00] VITALS: BP 105/61
[2017-03-18] MEDS: RIVAROXABAN 10 MG TABLET PO SCH (17:28)
[2017-03-18] MEDS: ACETAMINOPHEN 325 MG TABLET PO PRN ×2 (18:18→21:37)
[2017-03-18 20:04] VITALS: BP 124/55
[2017-03-18] MEDS: TEMAZEPAM 7.5 MG CAPSULE PO PRN (21:37)
[2017-03-18] MEDS ORDERED: OLANZAPINE 2.5 MG TABLET PO SCH (22:00)
[2017-03-19 08:00] VITALS: BP 134/63
[2017-03-19] MEDS: FLECAINIDE ACETATE (100 MG) 100 MG TABLET PO SCH ×2 (08:12→21:56)
[2017-03-19] MEDS: METRONIDAZOLE 500 MG TABLET PO SCH ×3 (08:12→16:04)
[2017-03-19] MEDS: PANTOPRAZOLE 40 MG TABLET.DR PO SCH (08:12)
[2017-03-19] MEDS: busPIRone 5 MG TABLET PO SCH ×2 (08:12→16:04)
[2017-03-19] MEDS: METOPROLOL SUCCINATE 50 MG TAB.SR.24H PO SCH ×2 (08:13→16:04)
[2017-03-19] MEDS: CLOBETASOL 0.05% OINT 30 GM TUBE TP SCH (08:46)
[2017-03-19] MEDS: ACETAMINOPHEN 325 MG TABLET PO PRN (09:58)
--- NOTE | 2017-03-19 14:00 | NUR ---
GPS RN NOTE: PT WAS SEEN AND EXAMINE BY DR ROMERO DR NOTIFIED PT HAS OPEN WOUND ON HER RIGHT ARM AND LEFT ARM AND LEG SCAB , DR WILL PUT NEW ORDERS AND DR MAHER WILL FOLLOW UP WOUND CONSUL TRIGGERED.WILL CONTINUE MONITORING FOR SAFETY AND BEHAVIOR Q 15 [place]
--- NOTE | 2017-03-19 15:37 | NUR ---
Pt. was referred and not accepted to [facility] [phone] [place] [address]; due to not having skilled needs per Bladimir from facility.
[2017-03-19 16:00] VITALS: BP 134/65
[2017-03-19] MEDS: RIVAROXABAN 10 MG TABLET PO SCH (17:25)
[2017-03-19 20:00] VITALS: BP 106/58
[2017-03-19] MEDS: OLANZAPINE 2.5 MG TABLET PO SCH (21:56)
[2017-03-19] MEDS: TEMAZEPAM 7.5 MG CAPSULE PO PRN (21:56)
[2017-03-20 08:00] VITALS: BP 120/69
[2017-03-20] MEDS: busPIRone 5 MG TABLET PO SCH ×2 (08:45→16:15)
[2017-03-20] MEDS: PANTOPRAZOLE 40 MG TABLET.DR PO SCH (08:45)
[2017-03-20] MEDS: METRONIDAZOLE 500 MG TABLET PO SCH ×3 (08:45→16:14)
[2017-03-20] MEDS: METOPROLOL SUCCINATE 50 MG TAB.SR.24H PO SCH ×2 (08:46→16:16)
[2017-03-20] MEDS: FLECAINIDE ACETATE (100 MG) 100 MG TABLET PO SCH ×2 (08:46→21:14)
[2017-03-20] MEDS: CLOBETASOL 0.05% OINT 30 GM TUBE TP SCH (08:47)
[2017-03-20] MEDS: NEOMY SULF/BACITRAC ZN/POLY 15 GM TUBE TP SCH (15:30)
[2017-03-20 16:05] VITALS: BP 98/58
[2017-03-20] MEDS: RIVAROXABAN 10 MG TABLET PO SCH (16:15)
--- NOTE | 2017-03-20 16:58 | NUR ---
SW spoke with the patient again, pt still wants to go to [place]. Pt. refuses placement. SW had a long conversation with the patient, pt appears to be logical, reasonable, and has a plan. Pt. is oriented x4, calm, cooperative, and is able to articulate a plan.
[2017-03-20] MEDS: ACETAMINOPHEN 325 MG TABLET PO PRN (19:58)
[2017-03-20 20:34] VITALS: BP 136/63
[2017-03-20] MEDS: OLANZAPINE 2.5 MG TABLET PO SCH (21:15)
[2017-03-21 08:00] VITALS: BP 141/80
[2017-03-21] MEDS: busPIRone 5 MG TABLET PO SCH ×2 (08:12→17:46)
[2017-03-21] MEDS: METRONIDAZOLE 500 MG TABLET PO SCH ×3 (08:12→17:45)
[2017-03-21] MEDS: PANTOPRAZOLE 40 MG TABLET.DR PO SCH (08:12)
[2017-03-21] MEDS: FLECAINIDE ACETATE (100 MG) 100 MG TABLET PO SCH ×2 (08:12→21:00)
[2017-03-21] MEDS: METOPROLOL SUCCINATE 50 MG TAB.SR.24H PO SCH ×2 (08:13→17:45)
[2017-03-21] MEDS: CLOBETASOL 0.05% OINT 30 GM TUBE TP SCH (08:16)
[2017-03-21] MEDS: NEOMY SULF/BACITRAC ZN/POLY 15 GM TUBE TP SCH (08:16)
[2017-03-21 16:00] VITALS: BP 146/75
[2017-03-21] MEDS: RIVAROXABAN 10 MG TABLET PO SCH (17:47)
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
[2017-03-21] MEDS: ACETAMINOPHEN 325 MG TABLET PO PRN (19:37)
--- NOTE | 2017-03-21 19:37 | NUR ---
GPS RN NOTE, PATIENT HAS A COMPLAINT OF LOWER BACK PAIN AT 2 OUT 10 ON THE PAIN SCALE AND WOULD LIKE MEDICATION AT THIS TIME. PATIENT VITAL SIGNS ARE STABLE. GAVE TYLENOL 650MG PO Q6HR PRN ORDERED. WILL REASSESS PAIN AND I WILL CONTINUE TO MONITOR THIS PATIENT.
[2017-03-21 20:00] VITALS: BP 112/70
--- NOTE | 2017-03-21 21:44 | NUR ---
GPS RN NOTE, PATIENT VITAL SIGNS ARE FOLLOWS B/P 112/70, TEMP 98.1, RESPIRATION 19, PULSE OF 51, AND SPO2 98%. PATIENT HAS TAMBOCOR 100MG PO Q12HR AND ZYPREXA 7.5MG PO HS SCHEDULED AT 2100. PAGED [facility] AND INFORMED DR YANY WEATHERS OF MY FINDINGS. DR YANY WEATHERS ORDERED TO HOLD TAMBOCOR 100 MG PO HS ONCE AND ZYPREXA 7.5MG PO HS ONCE DUE TO LOW PULSE AND CHANGE IN CONDITION. ALL ORDERS NOTED AND CARRIED OUT WILL CONTINUE TO MONITOR THIS PATIENT CLOSELY.
[2017-03-21] MEDS: OLANZAPINE 2.5 MG TABLET PO SCH (21:45)
[2017-03-22 08:00] VITALS: BP 128/73
[2017-03-22] MEDS: busPIRone 5 MG TABLET PO SCH ×2 (08:22→17:20)
[2017-03-22] MEDS: PANTOPRAZOLE 40 MG TABLET.DR PO SCH (08:23)
[2017-03-22] MEDS: METRONIDAZOLE 500 MG TABLET PO SCH ×3 (08:23→17:20)
[2017-03-22] MEDS: METOPROLOL SUCCINATE 50 MG TAB.SR.24H PO SCH ×2 (08:24→17:00)
[2017-03-22] MEDS: FLECAINIDE ACETATE (100 MG) 100 MG TABLET PO SCH ×2 (08:24→21:00)
--- NOTE | 2017-03-22 08:25 | NUR ---
[id number]: HOLD TAMBOCOR 100 MG PO AND METOPROLOL 100 MG PO DUE TO PULSE IS 48
[2017-03-22] MEDS: NEOMY SULF/BACITRAC ZN/POLY 15 GM TUBE TP SCH (08:29)
[2017-03-22] MEDS: CLOBETASOL 0.05% OINT 30 GM TUBE TP SCH (08:29)
[2017-03-22 16:00] VITALS: BP 100/60
[2017-03-22] MEDS: RIVAROXABAN 10 MG TABLET PO SCH (17:20)
[2017-03-22 19:58] VITALS: BP 117/64
[2017-03-22] MEDS: OLANZAPINE 2.5 MG TABLET PO SCH (22:00)
--- NOTE | 2017-03-22 22:20 | NUR ---
HOLD TAMBOCOR AND ZYPREXA D/T PULSE = 60. WILL CONTINUE TO MONITOR
[2017-03-23 08:00] VITALS: BP 118/74
[2017-03-23 08:41] VITALS: BP 118/74
[2017-03-23] MEDS: METRONIDAZOLE 500 MG TABLET PO SCH ×2 (08:41→12:34)
[2017-03-23] MEDS: PANTOPRAZOLE 40 MG TABLET.DR PO SCH (08:41)
[2017-03-23] MEDS: METOPROLOL SUCCINATE 50 MG TAB.SR.24H PO SCH (08:41)
[2017-03-23] MEDS: FLECAINIDE ACETATE (100 MG) 100 MG TABLET PO SCH (08:41)
[2017-03-23] MEDS: busPIRone 5 MG TABLET PO SCH (08:41)
[2017-03-23] MEDS: NEOMY SULF/BACITRAC ZN/POLY 15 GM TUBE TP SCH (08:45)
[2017-03-23] MEDS: CLOBETASOL 0.05% OINT 30 GM TUBE TP SCH (08:46)
--- NOTE | 2017-03-23 10:26 | NUR ---
BAYLEE met with the patient again. Pt. is alert and oriented x4. Pt. still refuses placement and wants to drive to [place]. BAYLEE will arrange for pt. to go to [facility] to rent a car in order to be able to continue her drive to [place]. Pt. states her friend lives there but because she does not have her phone with her she is unable to provide the pediatric social worker with the phone number and / or address.
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
== END 2017-03-23 14:05 | disposition home or self-care (01) | DRG 885 ==
LOC: GPS 13:53
PROVIDERS: ADMIT Psychiatry & Neurology Psychiatry; ATTEND Psychiatry & Neurology Psychiatry
DX: F29 Unspecified psychosis not due to a substance or known physiological condition (principal); D68.59 Other primary thrombophilia; F41.9 Anxiety disorder, unspecified; F03.90 Unspecified dementia, unspecified severity, without behavioral disturbance, psychotic disturbance, mood disturbance, and anxiety; Z73.6 Limitation of activities due to disability; F22 Delusional disorders; I48.91 Unspecified atrial fibrillation; F43.10 Post-traumatic stress disorder, unspecified; G25.81 Restless legs syndrome; F39 Unspecified mood [affective] disorder; I10 Essential (primary) hypertension; Z59.0 Homelessness; J31.0 Chronic rhinitis; S20.211D Contusion of right front wall of thorax, subsequent encounter; V89.2XXD Person injured in unspecified motor-vehicle accident, traffic, subsequent encounter; S50.11XD Contusion of right forearm, subsequent encounter; S81.801D Unspecified open wound, right lower leg, subsequent encounter; I48.0 Paroxysmal atrial fibrillation
CPT/HCPCS: 36415; 80048-TC; 80053-TC; 80061-TC; 83735-TC; 84100-TC; 85025-TC; 87081-TC; 97001-TC; A6402